=== PATIENT | female | born 1955 | race Caucasian/White ===

== ENCOUNTER → 2016-05-29 | Outpatient (CLI) | payer MEDICARE, OTHER ==
--- NOTE | 2016-05-29 10:13 | XR ---
EXAMINATION TYPE: XR KUB DATE OF EXAM: 05/29/2016 10:09 AM COMPARISON: 09/14/2012, 10/19/2012 HISTORY: Renal stone follow-up TECHNIQUE: One view abdominal series FINDINGS: The osseous structures are intact. Arthropathy of the hips noted. The bowel gas pattern is nonspecif ic. Right kidney: 1. 8 mm right renal pelvic calcification. 2. 14 mm lower pole calcification. Left kidney: 1. 5 mm lower pole renal calculus 2. 7 mm lower pole left renal calculus Pelvis: Nonspecific calcifications in the pelvis are most likely vascular. Postsurgical change and mann rgical clips noted. IMPRESSION: 1. One of the two right renal calculi now appear to have migrated to the renal pelvis. #2 left renal calculi are not as well-seen on the previous exam.
== END | disposition home or self-care (01) ==
LOC: RADXRMAIN 09:50
PROVIDERS: ATTEND Urology
DX: N20.0 Calculus of kidney (principal)
CPT/HCPCS: 74000

== ENCOUNTER → 2016-06-06 | Outpatient (CLI) | payer MEDICARE, OTHER ==
[2016-06-06 13:49] LABS: EKG EKG PERFORMED
[2016-06-06 14:28] LABS: Anion Gap 13 mmol/L; Blood Urea Nitrogen 17 mg/dL (7-17); Calcium 9.7 mg/dL (8.4-10.2); Carbon Dioxide 25 mmol/L (22-30); Chloride 101 mmol/L (98-107); Glucose 134 mg/dL (74-99); Non-African American GFR(MDRD) >60 (>60 ml/min/1.73 sqM); Potassium 4.4 mmol/L (3.5-5.1); Sodium 139 mmol/L (137-145)
[2016-06-06 14:40] LABS: Basophils # (A) 0.1 k/uL (0-0.2); Basophils % (A) 1 %; CH 30.3; CHCM 33.5; Eosinophils # (A) 0.2 k/uL (0-0.7); Eosinophils % (A) 3 %; HCT 44.1 % (34.0-46.0); HDW 2.28; HGB 14.5 gm/dL (11.4-16.0); Luc # (Auto) 0.32; Luc % (Auto) 4; Lymphocytes # (A) 2.2 k/uL (1.0-4.8); Lymphocytes % (A) 28 %; MCH 29.9 pg (25.0-35.0); MCV 90.8 fL (80.0-100.0); Mean Platelet Volume 7.9; Monocytes # (A) 0.7 k/uL (0-1.0); Monocytes % (A) 8 %; Neutrophils # (A) 4.4 k/uL (1.3-7.7); Neutrophils % (A) 56 %; RBC 4.86 m/uL (3.80-5.40); WBC 7.9 k/uL (3.8-10.6); WBC (Perox) 8.01
[2016-06-06 15:02] LABS: Partial Thromboplastin Time 22.1 sec (22.0-30.0)
== END | disposition home or self-care (01) ==
LOC: LABWHC1 13:40
PROVIDERS: ATTEND Urology
DX: Z01.810 Encounter for preprocedural cardiovascular examination (principal); Z01.812 Encounter for preprocedural laboratory examination; I10 Essential (primary) hypertension; N20.0 Calculus of kidney; R31.0 Gross hematuria
CPT/HCPCS: 36415; 80048; 85025; 85610; 85730; 93005

== ENCOUNTER 2016-06-09 09:52 | Day surgery (SDC) | payer MEDICARE, OTHER ==
[2016-06-06 15:23] VITALS: BMI 29.2
[~2016-06-09 09:52] MED LIST: LACTATED RINGERS 1,000 ML IV SCH
[2016-06-09 10:48] VITALS: TEMP 97.5
[2016-06-09] MEDS ORDERED: LIDOCAINE 1% 20 ML VIAL (10MG/ML) FOR IV START INTRADERMA ONE (11:05)
--- NOTE | 2016-06-09 11:30 | XR ---
Abdomen HISTORY: Right renal stone Protocol view of the abdomen submitted on 2 images and correlated to prior abdomen dated May 22 017 The right-sided and left renal calcifications are again noted. There is no bowel obstruction or pneum operitoneum. Bowel gas obscures detail. Lung bases are clear. Postop changes noted to the bowel as on prior exam, surgical clips present in the pelvis. Probable phleboliths in the pelvis. IMPRESSION: Bilateral nephrolithiasis.
[2016-06-09 11:34] LABS: Glucose,Whole Blood 144 mg/dL (75-99)
[2016-06-09] MEDS ORDERED: fentaNYL (PF) 50 MCG/ML 2 ML AMP ONE (11:43)
[2016-06-09] MEDS ORDERED: MIDAZOLAM 2 MG/2 ML VIAL ONE (11:43)
[2016-06-09] MEDS ORDERED: PROPOFOL 10 MG/ML 20 ML VIAL IV ONE (11:43)
[2016-06-09 12:49] VITALS: RESP 18
[2016-06-09 13:03] VITALS: BP 143/78; PULSE 82
--- NOTE | 2016-06-10 09:12 | OP ---
DATE OF SERVICE: 06/09/2016 SURGEON: LEONARD HORNE MD PREOPERATIVE DIAGNOSIS: Right renal calculi. POSTOPERATIVE DIAGNOSIS: Right renal calculi. OPERATION: Extracorporeal shock wave lithotripsy of right renal calculus. ANESTHESIA: Intravenous sedation. Patient is a 61-year-old female with a history of urolithiasis who underwent treatment of a right renal calculus in 2012. She continues to have 2 calculi in the right kidney and recently developed gross hematuria. The largest calculus measures 8 x 9 mm in size. Treatment options were reviewed with Dr. Chowdary and the patient has elected to proceed with repeat ESWL. DESCRIPTION OF PROCEDURE: Patient was taken the operating suite where adequate intravenous sedation was given. Patient was placed in the supine position on the fluoroscopy table. The 8 x 9 mm calculus was localized in the region of the right renal pelvis using biplanar fluoroscopy. Lithotripsy was performed using the Dornier compact delta unit. Patient received 2500 shocks at level 5. A 2 minute pause occurred after 200 shocks. There appeared to be fragmentation of the calculus. Anesthesia was reversed and the patient was returned to the recovery room, awake and in satisfactory condition. She will be seen back in one week by Dr. Chowdary at which time a KUB will be obtained. GRACE
== END 2016-06-09 13:16 | disposition home or self-care (01) ==
LOC: ORWHC2ENDO 09:52
PROVIDERS: ATTEND Urology
DX: N20.0 Calculus of kidney (principal); I10 Essential (primary) hypertension; E78.5 Hyperlipidemia, unspecified; E11.9 Type 2 diabetes mellitus without complications; K21.9 Gastro-esophageal reflux disease without esophagitis; E03.9 Hypothyroidism, unspecified; F41.9 Anxiety disorder, unspecified; Z88.1 Allergy status to other antibiotic agents; Z91.048 Other nonmedicinal substance allergy status; Z88.8 Allergy status to other drugs, medicaments and biological substances; Z79.84 Long term (current) use of oral hypoglycemic drugs; Z79.899 Other long term (current) drug therapy; Z87.891 Personal history of nicotine dependence; Z83.3 Family history of diabetes mellitus; Z80.51 Family history of malignant neoplasm of kidney
CPT/HCPCS: 50590; 74000; J2250; J3010; J2704; 99153

== ENCOUNTER → 2016-06-16 | Outpatient (CLI) | payer MEDICARE, OTHER ==
--- NOTE | 2016-06-16 13:11 | XR ---
Abdomen HISTORY: Renal calculus, post lithotripsy Frontal view of the abdomen submitted and correlated to prior abdomen May The superior calcification involving the right kidney seen on prior exam has resolved. The lower pole calcification on the right is stable. Overall calcification on the left is also stable. Surgical cli ps present in the pelvis, bowel suture is present, there vascular calcifications present. IMPRESSION: Interval lithotripsy on the right.
== END ==
LOC: RADXRWHC 12:00
PROVIDERS: ATTEND Urology
DX: N20.0 Calculus of kidney (principal)
CPT/HCPCS: 74000

== ENCOUNTER 2016-10-21 10:20 | Emergency (ER) | payer MEDICARE ==
[2016-10-21 10:28] VITALS: BP 116/55; PULSE 93; RESP 16
[2016-10-21] MEDS ORDERED: SODIUM CHLORIDE 0.9% 1,000 ML IV STA ×2 (10:39)
[2016-10-21] MEDS ORDERED: ONDANSETRON 4 MG/2 ML VIAL IVP STA (10:39)
--- NOTE | 2016-10-21 10:49 | ED ---
General Adult HPI - General Chief complaint: Nausea/Vomiting/Diarrhea Stated complaint: Fever Time Seen by Provider: 10/21/16 10:32 Source: patient, RN notes reviewed, old records reviewed Mode of arrival: ambulatory Limitations: no limitations - History of Present Illness Initial comments: This is a 61-year-old female here for evaluation regarding nausea, diarrhea. Diarrhea 2 days. Fever. No specific abdominal pain. History of diabetes history of colonoscopy which is normal, no difficulties with urination history of kidney stones. No back pain. Patient currently had a continuous diarrhea although it has slowed down. She is able to tolerate oral fluids and intake, no dietary changes, no founders of similar symptoms, no recent travel history - Related Data Home Medications Medication Instructions Recorded Confirmed Carvedilol 25 mg PO BID 06/11/15 10/21/16 Furosemide [Lasix] 20 mg PO DAILY PRN 06/11/15 10/21/16 Levothyroxine Sodium [Synthroid] 100 mcg PO QAM 06/11/15 10/21/16 Cholecalciferol (Vitamin D3) 10,000 unit PO DAILY 10/21/16 10/21/16 [Vitamin D3] Ibuprofen [Motrin] 200 - 800 mg PO Q6HR PRN 10/21/16 10/21/16 glipiZIDE [Glucotrol] 2.5 mg PO AC-SUPPER 10/21/16 10/21/16 glipiZIDE [Glucotrol] 5 mg PO QAM 10/21/16 10/21/16 metFORMIN HCL ER [Glucophage Xr] 1,000 mg PO HS 10/21/16 10/21/16 metFORMIN HCL ER [Glucophage Xr] 500 mg PO QAM 10/21/16 10/21/16 Allergies Allergy/AdvReac Type Severity Reaction Status Date / Time adhesive tape Allergy Itching,BLI Verified 10/21/16 11:06 STERS bacitracin Allergy Rash/Hives, Verified 10/21/16 11:06 [From Neosporin BLISTERS ([id number])] lisinopril Allergy Unknown Verified 10/21/16 11:06 neomycin Allergy Rash/Hives Verified 10/21/16 11:06 polymyxin B Allergy Rash/Hives, Verified 10/21/16 11:06 [From Neosporin BLISTERS ([id number])] Review of Systems ROS Statement: Those systems with pertinent positive or pertinent negative responses have been documented in the HPI. ROS Other: All systems not noted in ROS Statement are negative. Past Medical History Past Medical History: Cancer, Thyroid Disorder Additional Past Medical History / Comment(s): ALLERGIES: SNEEZING, EAR INFECTIONS.. OVARIAN CANCER. HYPOTHYROID. BILATERAL RENAL CALCULI. History of Any Multi-Drug Resistant Organisms: None Reported Past Surgical History: Section, Hysterectomy Additional Past Surgical History / Comment(s): PORT A CATH. WISDOM TEETH. LITHOTRIPSY. Past Anesthesia/Blood Transfusion Reactions: No Reported Reaction Past Psychological History: Anxiety Smoking Status: Former smoker Past Alcohol Use History: None Reported Past Drug Use History: None Reported General Exam Limitations: no limitations General appearance: alert, in no apparent distress Head exam: Present: atraumatic, normocephalic, normal inspection Eye exam: Present: normal appearance, PERRL, EOMI. Absent: scleral icterus, conjunctival injection, periorbital swelling ENT exam: Present: normal exam, mucous membranes moist Neck exam: Present: normal inspection. Absent: tenderness, meningismus, lymphadenopathy Respiratory exam: Present: normal lung sounds bilaterally. Absent: respiratory distress, wheezes, rales, rhonchi, stridor Cardiovascular Exam: Present: regular rate, normal rhythm, normal heart sounds. Absent: systolic murmur, diastolic murmur, rubs, gallop, clicks GI/Abdominal exam: Present: soft, normal bowel sounds. Absent: distended, tenderness, guarding, rebound, rigid Extremities exam: Present: normal inspection, full ROM, normal capillary refill. Absent: tenderness, pedal edema, joint swelling, calf tenderness Back exam: Present: normal inspection Neurological exam: Present: alert, oriented X3, CN II-XII intact Psychiatric exam: Present: normal affect, normal mood Skin exam: Present: warm, dry, intact, normal color. Absent: rash Course Vital Signs 10/21/16 10/21/16 10:25 11:06 Temperature 97.8 F 97.6 F Pulse Rate 93 Respiratory 16 Rate Blood Pressure 116/55 O2 Sat by Pulse 96 Oximetry - Reevaluation(s) Reevaluation #1: 10/21/16 11:44 Patient refusing all testing and lab work Medical Decision Making - Medical Decision Making 61 female here for evaluation of diarrhea, patient has had 3 days of diarrhea although symptoms are improving his multiple various decreasing. Patient also having increased amount of urination, concern for kidney stone. No blood in urine, patient informed that we do not diagnosed kidney stones urine she is aware, she wants to further testing and will be discharged home - Lab Data Lab Results 10/21/16 Range/Units 11:05 Urine Color Colorless Urine Appearance Clear (Clear) Urine pH 5.0 (5.0-8.0) Ur Specific Crosby 1.001 (1.001-1.035) Urine Protein Negative (Negative) Urine Glucose (UA) Negative (Negative) Urine Ketones Negative (Negative) Urine Blood Negative (Negative) Urine Nitrite Negative (Negative) Urine Bilirubin Negative (Negative) Urine Urobilinogen <2.0 (<2.0) mg/dL Ur Leukocyte Esterase Negative (Negative) Disposition Clinical Impression: Acute diarrhea Disposition: HOME SELF-CARE Condition: Good Instructions: Acute Diarrhea (ED) Referrals: Venkata Xavier MD [Primary Care Provider] - 1-2 days
[2016-10-21 11:06] VITALS: TEMP 97.6
[2016-10-21 11:12] LABS: Appearance,Urine Clear (Clear); Bilirubin,Urine Negative (Negative); Glucose,Urine (UA) Negative (Negative); Ketones,Urine Negative (Negative); Leukocyte Esterase,Urine Negative (Negative); Nitrite,Urine Negative (Negative); Protein,Urine Negative (Negative); Specific Gravity,Urine 1.001 (1.001-1.035); UA Billing (MACRO vs. MICRO) CHEM; Urobilinogen,Urine <2.0 mg/dL (<2.0)
== END 2016-10-21 12:05 | disposition home or self-care (01) ==
LOC: EC 10:20
DX: R19.7 Diarrhea, unspecified (principal); R11.2 Nausea with vomiting, unspecified; R50.9 Fever, unspecified; R35.8 Other polyuria; E03.9 Hypothyroidism, unspecified; E11.9 Type 2 diabetes mellitus without complications; Z53.20 Procedure and treatment not carried out because of patient's decision for unspecified reasons; Z87.891 Personal history of nicotine dependence; Z79.84 Long term (current) use of oral hypoglycemic drugs; Z79.899 Other long term (current) drug therapy; Z88.1 Allergy status to other antibiotic agents; Z88.8 Allergy status to other drugs, medicaments and biological substances; Z91.048 Other nonmedicinal substance allergy status; Z85.43 Personal history of malignant neoplasm of ovary; Z87.442 Personal history of urinary calculi; Z90.710 Acquired absence of both cervix and uterus
CPT/HCPCS: 81003; 87086; 99284

== ENCOUNTER → 2018-08-11 | Outpatient (CLI) | payer MEDICARE, OTHER ==
--- NOTE | 2018-08-11 11:03 | XR ---
Abdomen HISTORY: Nephrolithiasis, calculus of kidney Frontal view of the abdomen is submitted and correlated to prior abdomen dated 06/16/2016 There is an oval calcification superimposed over the left kidney region measuring 2 cm in greatest di mension. Calcification superimposed over the lower pole the right kidney is similar to prior exam and measures approximately 13 mm in greatest dimension. Small satellite calcification measures 2 mm just inferior to this calcification. There are postop changes within the pelvis as on prior exam as well as probable vascular calcifications. No evident bowel obstruction or pneumoperitoneum. Retained fecal debris present throughout the distribution of the colon. IMPRESSION: Bilateral nephrolithiasis.
== END | disposition home or self-care (01) ==
LOC: RADXRMAIN 10:04
PROVIDERS: ATTEND Urology
DX: N20.0 Calculus of kidney (principal)
CPT/HCPCS: 74018

== ENCOUNTER 2018-08-24 04:22 | Inpatient (IN) | payer MEDICARE, OTHER ==
[2018-08-24] MEDS ORDERED: ACETAMINOPHEN TAB 325 MG TAB PO PRN (05:51)
[2018-08-24] MEDS ORDERED: NALOXONE 0.4 MG/ML 1 ML VIAL IV PRN (05:51)
[2018-08-24] MEDS ORDERED: SODIUM CHLORIDE 0.9% 500 ML 500 ML IV STA (05:54)
[2018-08-24] MEDS ORDERED: MORPHINE SULFATE 4 MG/ML SYRINGE IV STA (05:55)
--- NOTE | 2018-08-24 06:02 | ED ---
Nausea/Vomiting/Diarrhea HPI - General Chief complaint: Nausea/Vomiting/Diarrhea Stated complaint: kidney stone Time Seen by Provider: 08/24/18 04:48 Source: patient, EMS Mode of arrival: EMS Limitations: no limitations - History of Present Illness Initial comments: This patient is a 63-year-old woman who arrives here as a transfer from [facility]. She had gone to the hospital there complaining of having left flank pain and vomiting. The patient also had undergone lithotripsy the prior day, with the urology group. She had gone home and then noted that she was having increasing left flank pain and also had a number of episodes of vomiting and was not able to keep down fluids or Tylenol. The patient was seen at the other hospital, she was found to have hyponatremia with a sodium level of 123. She was transferred here for further management. Currently, the patient states that the vomiting seems to have resolved. She has some mild left flank pain. She did decline analgesic at initial history and physical. No fever or chills. MD complaint: vomiting Onset/Timin -: days(s) Description of Vomiting: food contents Associated Abdominal Pain: Yes Location: flank Radiation: none Severity: moderate Quality: aching Consistency: constant Improves with: none Worsens with: none Associated Symptoms: nausea/vomiting - Related Data Home Medications Medication Instructions Recorded Confirmed Carvedilol 25 mg PO BID 06/11/15 08/24/18 Furosemide [Lasix] 20 mg PO DAILY PRN 06/11/15 08/24/18 Levothyroxine Sodium [Synthroid] 100 mcg PO QAM 06/11/15 08/24/18 Cholecalciferol (Vitamin D3) 10,000 unit PO DAILY 10/21/16 08/24/18 [Vitamin D3] Ibuprofen [Motrin] 200 - 800 mg PO Q6HR PRN 10/21/16 08/24/18 glipiZIDE [Glucotrol] 2.5 mg PO AC-SUPPER 10/21/16 08/24/18 glipiZIDE [Glucotrol] 5 mg PO QAM 10/21/16 08/24/18 metFORMIN HCL ER [Glucophage Xr] 1,000 mg PO HS 10/21/16 08/24/18 metFORMIN HCL ER [Glucophage Xr] 500 mg PO QAM 10/21/16 08/24/18 Tamsulosin HCl [Flomax] 0.4 mg PO DAILY 08/24/18 08/24/18 Allergies Allergy/AdvReac Type Severity Reaction Status Date / Time adhesive tape Allergy Itching,BLI Verified 08/24/18 04:38 STERS bacitracin Allergy Rash/Hives, Verified 08/24/18 04:38 [From Neosporin BLISTERS ([id number])] lisinopril Allergy Unknown Verified 08/24/18 04:38 neomycin Allergy Rash/Hives Verified 08/24/18 04:38 polymyxin B Allergy Rash/Hives, Verified 08/24/18 04:38 [From Neosporin BLISTERS ([id number])] Review of Systems ROS Statement: Those systems with pertinent positive or pertinent negative responses have been documented in the HPI. ROS Other: All systems not noted in ROS Statement are negative. Constitutional: Denies: fever, chills Respiratory: Denies: cough, dyspnea Cardiovascular: Denies: chest pain, palpitations, edema, syncope Gastrointestinal: Reports: abdominal pain (Left flank), nausea, vomiting. Denies: diarrhea, constipation, melena, hematochezia Genitourinary: Reports: hematuria. Denies: dysuria, frequency Musculoskeletal: Denies: back pain Skin: Denies: rash Neurological: Denies: headache, weakness, numbness Past Medical History Past Medical History: Cancer, Thyroid Disorder Additional Past Medical History / Comment(s): ALLERGIES: SNEEZING, EAR INFECTIONS.. OVARIAN CANCER. HYPOTHYROID. BILATERAL RENAL CALCULI. History of Any Multi-Drug Resistant Organisms: None Reported Past Surgical History: Section, Hysterectomy Additional Past Surgical History / Comment(s): PORT A CATH. WISDOM TEETH. LITHOTRIPSY. Past Anesthesia/Blood Transfusion Reactions: No Reported Reaction Past Psychological History: Anxiety Smoking Status: Former smoker Past Alcohol Use History: None Reported Past Drug Use History: None Reported General Exam Limitations: no limitations General appearance: alert, in no apparent distress Head exam: Present: atraumatic, normocephalic Eye exam: Present: normal appearance. Absent: scleral icterus, conjunctival injection ENT exam: Present: mucous membranes dry Neck exam: Present: normal inspection Respiratory exam: Present: normal lung sounds bilaterally. Absent: respiratory distress, wheezes, rales, rhonchi, stridor Cardiovascular Exam: Present: regular rate, normal rhythm, normal heart sounds. Absent: systolic murmur, diastolic murmur, rubs, gallop GI/Abdominal exam: Present: soft. Absent: distended, tenderness, guarding, rebound, mass Extremities exam: Present: normal inspection, normal capillary refill. Absent: pedal edema, calf tenderness Back exam: Present: normal inspection. Absent: CVA tenderness (R), CVA tenderness (L) Neurological exam: Present: alert Skin exam: Present: warm, dry, intact, normal color. Absent: rash Course Vital Signs 08/24/18 04:25 Temperature 97.6 F Pulse Rate 80 Respiratory 18 Rate Blood Pressure 148/68 O2 Sat by Pulse 94 L Oximetry Medical Decision Making - Medical Decision Making Review of the patient's transfer paperwork reveals that the patient also had lactic acidosis at 3.5 she was given 2 L IV fluid and transferred here. Disposition Clinical Impression: Hyponatremia, Hypomagnesemia, Lactic acidosis, Flank pain Disposition: ADMITTED IP TO THIS HOSP Condition: Fair Is patient prescribed a controlled substance at d/c from ED?: No Referrals: Kayla Ramirez MD [Primary Care Provider] - 1-2 days
[2018-08-24] MEDS ORDERED: FUROSEMIDE 20 MG TAB PO PRN (06:04)
[2018-08-24 07:04] LABS: Appearance,Urine Clear (Clear); Bilirubin,Urine Negative (Negative); Blood,Urine Moderate (Negative); Color,Urine Light Yellow; Glucose,Urine (UA) 2+ (Negative); Ketones,Urine Negative (Negative); Leukocyte Esterase,Urine Negative (Negative); Mucus,Urine Rare /hpf; Nitrite,Urine Negative (Negative); PH, Urine 5.5 (5.0-8.0); Protein,Urine Negative (Negative); RBC,Urine 42 /hpf (0-5); Squamous Epithelial Cell,Urine <1 /hpf (0-4); Urobilinogen,Urine <2.0 mg/dL (<2.0)
[2018-08-24 07:07] LABS: Anion Gap 9 mmol/L; Blood Urea Nitrogen 15 mg/dL (7-17); Calcium 8.3 mg/dL (8.4-10.2); Carbon Dioxide 21 mmol/L (22-30); Chloride 102 mmol/L (98-107); Glucose 181 mg/dL (74-99); Potassium 4.7 mmol/L (3.5-5.1); Sodium 132 mmol/L (137-145)
[2018-08-24 07:07] LABS: Creatinine,Urine Random 21.8 mg/dL
[2018-08-24] MEDS: SODIUM CHLORIDE 0.9% 1,000 ML IV SCH ×2 (07:21→17:46)
[2018-08-24] MEDS ORDERED: glipiZIDE 5 MG TAB PO SCH ×2 (09:00→17:30)
[2018-08-24] MEDS: CARVEDILOL 12.5 MG TAB PO SCH ×2 (09:16→17:11)
[2018-08-24] MEDS: TAMSULOSIN 0.4 MG CAP.ER.24H PO SCH (09:19)
[2018-08-24] MEDS: ONDANSETRON 4 MG/2 ML VIAL IVP PRN ×2 (10:04→18:00)
[2018-08-24] MEDS: MORPHINE SULFATE 4 MG/ML SYRINGE IVP PRN ×3 (10:06→21:41)
[2018-08-24] MEDS: LEVOTHYROXINE 100 MCG TAB PO SCH (14:40)
[2018-08-24] MEDS: metFORMIN 500 MG TAB PO SCH ×3 (15:03→21:35)
--- NOTE | 2018-08-24 16:23 | P.GSCN ---
History of Present Illness Consult date: 08/24/18 History of present illness: The patient is a 63-year-old female who underwent extracorporeal shockwave lithotripsy by yesterday for a 14 mm left renal pelvic stone. She's been seen and treated by in the recent past and set up for the shockwave lithotripsy. She did well and passed some fragments. Later on in the evening and throughout the night she developed severe nausea and vomiting. She ended up in the [facility] emergency room and was transferred here because of persistent colic nausea vomiting and hyponatremia due to the vomiting. She has had no fever. She is still having discomfort. She has not passed any fragments. I do not have any x-rays showing the status of her kidney stone at this point in time. Review of Systems - Constitutional Reports anorexia - Gastrointestinal Reports abdominal pain - Genitourinary Genitourinary: Reports as per HPI Past Medical History Past Medical History: Cancer, Diabetes Mellitus, GERD/Reflux, Hyperlipidemia, Osteoarthritis (OA), Renal Disease, Thyroid Disorder Additional Past Medical History / Comment(s): Nephrolithiasis, ovarian cancer in 2010 with mets tx with surgery/chemo, numbness/tingling/itching skin all over since chemo, NIDDM type II, neuropathy feet, LBBB, tinnitis bilaterally, sinus problems, ear infections History of Any Multi-Drug Resistant Organisms: None Reported Past Surgical History: Section, Hysterectomy Additional Past Surgical History / Comment(s): Lithotripsies-last one 08/23/18, total hysterectomy with bowel resection and appendectomy d/t ovarian cancer, port-now out, wisdom teeth extractions. Past Anesthesia/Blood Transfusion Reactions: No Reported Reaction, Motion Sickness Smoking Status: Former smoker - Past Family History Father Family Medical History: Cancer Additional Family Medical History / Comment(s): Father of lung cancer. Mother Family Medical History: Diabetes Mellitus Additional Family Medical History / Comment(s): Kidney stones. Medications and Allergies Home Medications Medication Instructions Recorded Confirmed Type Carvedilol 25 mg PO BID 06/11/15 08/24/18 History Furosemide [Lasix] 20 mg PO BID 06/11/15 08/24/18 History Levothyroxine Sodium [Synthroid] 100 mcg PO QAM 06/11/15 08/24/18 History Ibuprofen [Motrin] 200 - 800 mg PO Q6HR PRN 10/21/16 08/24/18 History glipiZIDE [Glucotrol] 2.5 mg PO AC-SUPPER 10/21/16 08/24/18 History glipiZIDE [Glucotrol] 5 mg PO QAM 10/21/16 08/24/18 History metFORMIN HCL ER [Glucophage Xr] 1,000 mg PO HS 10/21/16 08/24/18 History metFORMIN HCL ER [Glucophage Xr] 500 mg PO QAM 10/21/16 08/24/18 History Cetirizine HCl [Zyrtec] 10 mg PO DAILY 08/24/18 08/24/18 History Cholecalciferol [Vitamin D3 (25 1,000 unit PO BID 08/24/18 08/24/18 History Mcg = 1000 Iu)] Omeprazole [PriLOSEC] 20 mg PO DAILY 08/24/18 08/24/18 History Tamsulosin HCl [Flomax] 0.4 mg PO DAILY 08/24/18 08/24/18 History Allergies Allergy/AdvReac Type Severity Reaction Status Date / Time adhesive tape Allergy Itching,BLI Verified 08/24/18 07:56 STERS bacitracin Allergy Rash/Hives, Verified 08/24/18 07:56 [From Neosporin BLISTERS ([id number])] lisinopril Allergy Unknown Verified 08/24/18 07:56 neomycin Allergy Rash/Hives Verified 08/24/18 07:56 polymyxin B Allergy Rash/Hives, Verified 08/24/18 07:56 [From Neosporin BLISTERS ([id number])] Surgical - Exam Vital Signs Temp Pulse Resp BP Pulse Ox 97.6 F 80 18 148/68 94 L 08/24/18 04:25 08/24/18 04:25 08/24/18 04:25 08/24/18 04:25 08/24/18 04:25 - General well developed, well nourished, moderate distress - Eyes PERRL - ENT no hearing loss - Neck no masses - Respiratory normal expansion, normal respiratory effort - Cardiovascular Rhythm: regular - Abdomen Abdomen: soft, tender - Neurologic normal coordination, normal sensation - Musculoskeletal normal posture - Psychiatric oriented to time, oriented to person, oriented to place, speech is normal, memory intact Results - Labs 08/24/18 06:36 Abnormal Lab Results - Last 24 Hours (Table) 08/24/18 08/24/18 08/24/18 Range/Units 06:00 06:36 06:36 Sodium 132 L (137-145) mmol/L Carbon Dioxide 21 L (22-30) mmol/L Glucose 181 H (74-99) mg/dL Osmolality 279 L (280-301) mosm/kg Plasma Lactic Acid Ricky 2.8 H* (0.7-2.0) mmol/L Calcium 8.3 L (8.4-10.2) mg/dL Urine Glucose (UA) 2+ H (Negative) Urine Blood Moderate H (Negative) Urine RBC 42 H (0-5) /hpf Urine Mucus Rare H (None) /hpf Diabetes panel 08/24/18 Range/Units 06:36 Sodium 132 L (137-145) mmol/L Potassium 4.7 (3.5-5.1) mmol/L Chloride 102 (98-107) mmol/L Carbon Dioxide 21 L (22-30) mmol/L BUN 15 (7-17) mg/dL Creatinine 0.70 (0.52-1.04) mg/dL Glucose 181 H (74-99) mg/dL Calcium 8.3 L (8.4-10.2) mg/dL Calcium panel 08/24/18 Range/Units 06:36 Calcium 8.3 L (8.4-10.2) mg/dL Pituitary panel 08/24/18 Range/Units 06:36 Sodium 132 L (137-145) mmol/L Potassium 4.7 (3.5-5.1) mmol/L Chloride 102 (98-107) mmol/L Carbon Dioxide 21 L (22-30) mmol/L BUN 15 (7-17) mg/dL Creatinine 0.70 (0.52-1.04) mg/dL Glucose 181 H (74-99) mg/dL Calcium 8.3 L (8.4-10.2) mg/dL Adrenal panel 08/24/18 Range/Units 06:36 Sodium 132 L (137-145) mmol/L Potassium 4.7 (3.5-5.1) mmol/L Chloride 102 (98-107) mmol/L Carbon Dioxide 21 L (22-30) mmol/L BUN 15 (7-17) mg/dL Creatinine 0.70 (0.52-1.04) mg/dL Glucose 181 H (74-99) mg/dL Calcium 8.3 L (8.4-10.2) mg/dL Assessment and Plan Assessment: Impression: Left ureteral colic post shockwave lithotripsy most likely due to obstructing ureteral stone fragments. Nausea and vomiting secondary to colic. Hyponatremia secondary to the nausea and vomiting. Plan: I will obtain a KUB. Assuming the fragments persists she will need a left ureteroscopic stone manipulation through without a stent tomorrow to control the obstruction and pain. I will notify of the patient's admission
--- NOTE | 2018-08-24 16:45 | XR ---
EXAMINATION TYPE: XR KUB DATE OF EXAM: 08/24/2018 COMPARISON: 08/11/2018 HISTORY: Pain TECHNIQUE: Single view FINDINGS: There is 8 mm calcification over the lower pole right kidney. There is no sign of intestina l obstruction or pneumoperitoneum. Fecal pattern is normal. There is no evidence of a mass. There is linear calcification in the left lower quadrant is probably multiple calculi in the distal l eft ureter. There is clearing of the 1.8 cm rounded calcification over the left kidney compared to re cent exam. IMPRESSION: There is calcification in the distal left ureter apparently from lithotripsy. This is Corky instrasse. Stable right renal calculus.
[2018-08-24 17:39] LABS: Glucose,Whole Blood 143 mg/dL (75-99)
[2018-08-24] MEDS: INSULIN ASPART (NovoLOG) 100 UNIT/ML VIAL SQ SCH ×2 (17:43→20:25)
[2018-08-24] MEDS ORDERED: LACTATED RINGERS 1,000 ML IV SCH (20:30)
--- NOTE | 2018-08-24 21:07 | HP ---
HISTORY AND PHYSICAL DATE OF ADMISSION AND SERVICE: 08/24/2018 PRESENTING COMPLAINT: Abdominal pain. HISTORY OF PRESENTING COMPLAINT: This is a pleasant 63-year-old patient of Dr. Ramirez. Chronic stable medical conditions include diabetes with diabetic peripheral neuropathy, GERD, hypertension, hyperlipidemia, osteoarthritis, chronic tinnitus. Yesterday the patient was at the [facility], where she underwent lithotripsy. Subsequently she went home and started having increasing left-sided abdominal pain with nausea and vomiting that became rather severe, and she presented to [facility], found to have a sodium of 123, and she was sent down here. Patient denies any fever or chills but has increasing amount of pain in the left flank side. The patient was seen by Dr. Coker earlier today, who is planning to do a possible ureteroscopy tomorrow for possibly some small fragments in the ureter. REVIEW OF SYSTEMS: CONSTITUTIONAL: Tired. HEENT: None. RESPIRATORY: None. CARDIOVASCULAR: None. GASTROINTESTINAL: As above. GENITOURINARY: As above. MUSCULOSKELETAL: Arthritic pain in joints. DERMATOLOGICAL: None. HEMATOLOGICAL: None. LYMPHATICS: None. PSYCHIATRY: None. NEUROLOGICAL: None. PAST MEDICAL HISTORY: 1. Diabetes mellitus, type 2. 2. GERD. 3. Hyperlipidemia. 4. Osteoarthritis. 5. Hypothyroid. 6. Kidney stones. 7. Ovarian cancer in 2010 with metastases, treated with surgery and chemo. 8. Numbness, tingling. 9. Peripheral neuropathy. 10.Left bundle branch block. 11.Tinnitus. 12.Ear infection. PAST SURGICAL HISTORY: 1. . 2. Hysterectomy. 3. Lithotripsy done yesterday. 4. Total hysterectomy, bowel resection and appendectomy due to ovarian cancer. PSYCH HISTORY: Anxiety. SOCIAL HISTORY: Lives with daughter and son-in-law, living in her house. The patient smoked for about 18 years, stopped in 1988. Alcohol rarely. FAMILY HISTORY: Father had lung cancer. HOME MEDICATIONS: 1. Prilosec 20 mg a day. 2. Vitamin D3 1000 units b.i.d. 3. Lasix 20 mg b.i.d. 4. Zyrtec 10 mg p.o. daily. 5. Flomax 0.4 mg p.o. daily. 6. Glucophage XR 1000 mg at bedtime, 500 mg in the morning. 7. Glucotrol 5 mg in the morning, 2.5 with supper. 8. Synthroid 100 mcg a day. 9. Motrin 200 to 800 q.6 p.r.n. 10.Coreg 25 mg b.i.d. ALLERGIES: 1. ADHESIVE TAPE. 2. BACITRACIN. 3. LISINOPRIL. 4. NEOMYCIN. 5. POLYMYXIN B. PHYSICAL EXAMINATION: VITAL SIGNS ON PRESENTATION: Temperature 97.6, pulse 80, respiration 18, blood pressure 148/68, pulse ox 94% on 3 L. GENERAL APPEARANCE: Well built; BMI 31.6. Lying in bed, uncomfortable. EYES: Pupils equal. Conjunctivae normal. HEENT: External appearance of nose and ears normal. Oral cavity a bit dry. NECK: JVD not raised. Mass not palpable. RESPIRATORY: Effort normal. LUNGS: Fair air entry. CARDIOVASCULAR: First and second sounds normal. No edema. ABDOMEN: Left-sided tenderness. No guarding or rigidity. Liver and spleen not palpable. LYMPHATIC: No lymph node palpable in neck or axillae. PSYCHIATRY: Alert and oriented x3. Mood and affect normal. NEUROLOGICAL: Pupils equal. Cranial nerves grossly intact. Power and sensation grossly intact. ASSESSMENT: 1. Increasing acute left flank pain in a patient who had lithotripsy done yesterday. Patient probably has some small grit or stones in the left ureter which may need to be extracted. Patient still remains in significant pain. 2. Hyponatremia, probably hypo-osmolar. It was 123 at [facility], now up to 132 this morning. 3. Diabetes mellitus, type 2, on oral hypoglycemic. 4. Diabetic peripheral neuropathy. 5. Gastroesophageal reflux disease. 6. Hyperlipidemia. 7. Primary osteoarthritis. 8. Essential hypertension. 9. Lactic acidosis, likely type 2. PLAN: Patient's IV fluids have been increased to 150 mL/hour. Hold off oral hypoglycemic. Continue with Accu-Cheks with sliding scale. Other home medications are resumed. Care was discussed with the patient. Dr. Coker saw the patient from urology group, planning to take the patient to the OR tomorrow for ureteroscopy. Care was discussed with the patient. Questions were answered. MMODL / IJN: [id number] /
[2018-08-24] MEDS: ENOXAPARIN 40 MG/0.4 ML SYRINGE SQ SCH (21:34)
[2018-08-25] MEDS: MORPHINE SULFATE 4 MG/ML SYRINGE IVP PRN ×2 (02:01→05:48)
[2018-08-25] MEDS: LEVOTHYROXINE 100 MCG TAB PO SCH (05:02)
[2018-08-25 07:17] LABS: Glucose,Whole Blood 148 mg/dL (75-99)
[2018-08-25 08:10] LABS: Basophils # (A) 0.1 k/uL (0-0.2); Basophils % (A) 1 %; Eosinophils # (A) 0.2 k/uL (0-0.7); Eosinophils % (A) 1 %; HCT 38.6 % (34.0-46.0); HGB 12.8 gm/dL (11.4-16.0); Lymphocytes # (A) 1.4 k/uL (1.0-4.8); Lymphocytes % (A) 10 %; MCH 29.8 pg (25.0-35.0); MCV 90.3 fL (80.0-100.0); Mean Platelet Volume 7.3; Monocytes % (A) 7 %; Neutrophils # (A) 11.1 k/uL (1.3-7.7); Neutrophils % (A) 79 %; Platelet Count 268 k/uL (150-450); RBC 4.28 m/uL (3.80-5.40); RDW 13.4 % (11.5-15.5); WBC 14.1 k/uL (3.8-10.6)
[2018-08-25] MEDS: INSULIN ASPART (NovoLOG) 100 UNIT/ML VIAL SQ SCH ×2 (08:12→12:34)
[2018-08-25] MEDS: CARVEDILOL 12.5 MG TAB PO SCH ×2 (08:18→09:08)
[2018-08-25] MEDS: metFORMIN 500 MG TAB PO SCH ×2 (08:19)
[2018-08-25] MEDS: TAMSULOSIN 0.4 MG CAP.ER.24H PO SCH (08:19)
[2018-08-25 08:22] LABS: Calcium 8.6 mg/dL (8.4-10.2); Potassium 4.4 mmol/L (3.5-5.1)
[2018-08-25] MEDS: ENOXAPARIN 40 MG/0.4 ML SYRINGE SQ SCH (09:00)
[2018-08-25] MEDS ORDERED: LACTATED RINGERS 1,000 ML IV ONE ×2 (09:45)
[2018-08-25] MEDS: ONDANSETRON 4 MG/2 ML VIAL IVP PRN (09:53)
[2018-08-25] MEDS ORDERED: DEXAMETHASONE SOD PHOSPHATE 10 MG/ML 1 ML VIAL IV ONE (09:54)
[2018-08-25] MEDS ORDERED: fentaNYL (PF) 50 MCG/ML 2 ML AMP IVP ONE (09:56)
[2018-08-25] MEDS ORDERED: ePHEDrine SULFATE/0.9% NACL/PF 50 MG/5 ML SYRINGE IV ONE (10:00)
[2018-08-25] MEDS ORDERED: ceFAZolin 1,000 MG VIAL ONE (10:00)
[2018-08-25] MEDS ORDERED: SUCCINYLCHOLINE CHLORIDE 100 MG/5 ML SYR IV ONE (10:00)
[2018-08-25] MEDS ORDERED: LIDOCAINE 1% INJ 10MG/ML (20 ML MDV) ONE (10:00)
[2018-08-25] MEDS ORDERED: MIDAZOLAM 2 MG/2 ML VIAL ONE (10:00)
[2018-08-25] MEDS ORDERED: PHENYLEPHRINE-0.9% NACL SYG 1 MG/10 ML SYRINGE ONE (10:00)
[2018-08-25] MEDS ORDERED: PROPOFOL 10 MG/ML 20 ML VIAL IV ONE (10:00)
[2018-08-25] MEDS ORDERED: fentaNYL (PF) 50 MCG/ML 2 ML AMP ONE (10:00)
[2018-08-25 10:03] LABS: Glucose,Whole Blood 146 mg/dL (75-99)
[2018-08-25] MEDS ORDERED: SODIUM CHLORIDE 0.9% 50 ML with ceFAZolin 2,000 MG IV ONE ×2 (10:15)
--- NOTE | 2018-08-25 11:00 | P.OP ---
Date of Procedure: 08/25/18 Preoperative Diagnosis: Left ureteral calculi with obstruction and colic Postoperative Diagnosis: Same Procedure(s) Performed: Cystoscopy, left ureteroscopy with stone basketing, placement of 6 x 24 double-J catheter Anesthesia: SHWETA Surgeon: Clay Coker Estimated Blood Loss (ml): 0 Pathology: other (Stone) Condition: stable Disposition: PACU Indications for Procedure: The patient is 63. She had a 14-15 mm stone treated with shockwave lithotripsy on Thursday. Stone fragments obstructed and she developed a significant Steinstrasse in the left ureter. She continues to have colic. KUB identifies this. She comes for stone manipulation Description of Procedure: The patient was brought in the operating suite she is given general anesthesia. She's placed lithotomy position with sterile prep and drape. Fluoroscopy identifies the left ureteral Steinstrasse in the distal ureter cystoscopy with a 22-Faroese sheath and Foroblique lenses performed. The mucosa was unremarkable the right ureteral orifice is normal. They're stone emanating from the left ureteral orifice. It is grasped with a cup biopsy forcep but there is still stone lodging the distal ureter. I passed the 7-Faroese mini scope and him able to dislodge the distal fragments. There then pass is a fair amount of sand. I passed into the more proximal portion of the intramural ureter. There are fragments that I basket. I then pass proximal this and washout the rest of the sand. Then of the procedure there is no significant stone but there is still a significant amount of edema in the intramural tunnel. I thus passed an 035 wire through the ureteroscope up into the renal pelvis. I move the ureteroscope and over the wire pass a 6 x 24 double-J cath that coils in the renal pelvis and the bladder the bladder is cleared of any stone fragments. The patient's awake and returned recovery in good condition she tolerated procedure well. She can be discharged home later today. She'll follow-up in the office early next week for stent removal
[2018-08-25 11:18] VITALS: RESP 16
[2018-08-25 11:48] LABS: Glucose,Whole Blood 158 mg/dL (75-99)
--- NOTE | 2018-08-25 12:26 | FL ---
EXAMINATION TYPE: FL guidance operating room DATE OF EXAM: 08/25/2018 HISTORY: Flouroscopy time 40 seconds of fluoroscopy provided. IMPRESSION: 1. Fluoroscopy time.
[2018-08-25 12:57] VITALS: TEMP 98
[2018-08-25 15:16] VITALS: BP 118/68; PULSE 79
--- NOTE | 2018-08-26 08:54 | DS ---
DISCHARGE SUMMARY DATE OF ADMISSION: 08/24/2018 DATE OF DISCHARGE: 08/25/2018 FINAL DIAGNOSES: 1. Acute flank pain possibly from stone in the left ureter. 2. Hyponatremia, likely hypoosmolar. Sodium was 123 at [facility]. 3. Diabetes mellitus, type 2, on oral hypoglycemic. 4. Diabetic peripheral neuropathy. 5. Gastroesophageal reflux disease. 6. Hyperlipidemia. 7. Primary osteoarthritis. 8. Essential hypertension. 9. Lactic acidosis type 2. CONSULTATION: Dr. Coker from Urology. HOSPITAL COURSE: This pleasant lady who had a lithotripsy done at the [facility]. Came home then started having increasing abdominal pain. Initially presented to [facility] then transferred down here. Sodium was 123, was having nausea, vomiting. Earlier today, a double-J stent catheter was placed left side. Patient's symptoms greatly improved. Patient was feeling much better. On examination, temperature 98, pulse 91, respiration 16, blood pressure 115/69. LUNGS: Clear. CARDIOVASCULAR: First and second sounds normal. INVESTIGATIONS: Hemoglobin 12.8. BUN 13, creatinine 0.97. DISCHARGE MEDICATIONS: 1. Coreg 25 mg p.o. b.i.d. 2. Lasix 20 mg b.i.d. 3. Synthroid 100 mcg p.o. daily. 4. Glucotrol 2.5 before supper and 5 mg in the morning. 5. Glucophage 1000 mg at night, 500 mg in the morning. 6. Zyrtec 10 mg daily. 7. Prilosec 20 mg daily. 8. Flomax 0.4 mg daily. Follow up with Dr. Kayla Ramirez in 2 days. Follow up with Dr. Coker on 08/30/2018. MMODL / IJN: [id number] /
== END 2018-08-25 15:30 | disposition home or self-care (01) | DRG 660 ==
LOC: EC 04:22 → 3SCARD 05:51 → 4SSUR 12:07 → 3NMEDONC 14:02
PROVIDERS: ADMIT Hospitalist; ATTEND Hospitalist
DX: N20.2 Calculus of kidney with calculus of ureter (principal); E87.1 Hypo-osmolality and hyponatremia; E87.2 Acidosis; E11.42 Type 2 diabetes mellitus with diabetic polyneuropathy; E83.42 Hypomagnesemia; K21.9 Gastro-esophageal reflux disease without esophagitis; E03.9 Hypothyroidism, unspecified; E78.5 Hyperlipidemia, unspecified; M19.91 Primary osteoarthritis, unspecified site; I10 Essential (primary) hypertension; H93.19 Tinnitus, unspecified ear; Z79.84 Long term (current) use of oral hypoglycemic drugs; Z79.890 Hormone replacement therapy; Z79.899 Other long term (current) drug therapy; Z85.43 Personal history of malignant neoplasm of ovary; Z98.891 History of uterine scar from previous surgery; Z90.710 Acquired absence of both cervix and uterus; Z87.891 Personal history of nicotine dependence; Z86.59 Personal history of other mental and behavioral disorders; Z87.442 Personal history of urinary calculi; Z88.1 Allergy status to other antibiotic agents; Z88.8 Allergy status to other drugs, medicaments and biological substances; Z91.048 Other nonmedicinal substance allergy status; Z84.1 Family history of disorders of kidney and ureter; Z80.1 Family history of malignant neoplasm of trachea, bronchus and lung; Z83.3 Family history of diabetes mellitus
CPT/HCPCS: 74018; 80048; 81001; 82365; 82570; 83605; 83930; 83935; 84133; 84300; 85025; 96374; 96375; 96376; 99285

== ENCOUNTER → 2018-08-30 | Outpatient (CLI) | payer MEDICARE, OTHER ==
--- NOTE | 2018-08-30 08:14 | XR ---
EXAMINATION TYPE: XR abdomen 1V DATE OF EXAM: 08/30/2018 COMPARISON: 08/24/2018 HISTORY: Post lithotripsy TECHNIQUE: One view abdominal series FINDINGS: Left-sided ureteral stent is seen. Postsurgical change involving the pelvis. No suspicious calcificat ions along the course stent. No definite calcification seen overlying the left kidney. There remains a large right-sided renal calculus measuring 1.1 cm with 2 mm satellite calcification l ower pole. IMPRESSION: 1. Left-sided ureteral stent with no definite residual calcification seen. Note is made there is over lying bowel content which can obscure the region. 2. Right-sided nephrolithiasis as measured above.
== END | disposition home or self-care (01) ==
LOC: RADXRMAIN 07:53
PROVIDERS: ATTEND Urology
DX: N20.0 Calculus of kidney (principal)
CPT/HCPCS: 74018

== ENCOUNTER → 2018-10-11 | Outpatient (CLI) | payer MEDICARE, OTHER ==
--- NOTE | 2018-10-11 12:10 | XR ---
KUB HISTORY: Stone, N 20.0 Frontal KUB submitted on 2 images Correlation to prior KUB 08/24/2018 Oh calcification at the lower pole the right kidney persists and measures approximately 16 mm in ceph alad to caudal dimension. Surgical clips present in the left hemipelvis. Additional suture present in the pelvis, there is associated vascular calcifications present within the pelvis as on prior. Lung bases are clear. No pneumoperitoneum or bowel obstruction. Retained fecal debris throughout the colon , correlate for fecal stasis. The increased attenuation at the level of the distal ureter on the left is no longer seen. IMPRESSION: Right-sided nephrolithiasis.
== END | disposition home or self-care (01) ==
LOC: RADXRMAIN 07:28
PROVIDERS: ATTEND Urology
DX: N20.0 Calculus of kidney (principal)
CPT/HCPCS: 74018

== ENCOUNTER → 2018-10-18 | Outpatient (CLI) | payer MEDICARE, OTHER ==
--- NOTE | 2018-10-18 09:10 | US ---
EXAMINATION TYPE: US kidneys/renal and bladder DATE OF EXAM: 10/18/2018 COMPARISON: KUB CLINICAL HISTORY: N20.0 Calculus of Kidneys. Pt states h/o renal stones x many years/ pt had lithotri psy with stent placement and removal left kidney 6 weeks ago EXAM MEASUREMENTS: Right Kidney: 12.5 x 5.8 x 6.9 cm Left Kidney: 11.7 x 6.2 x 5.1 cm Right Kidney: No evidence of hydro, 1.1 cm renal calculus in the lower pole Left Kidney: Mildly under nephrosis, 1.1 renal calculus in the lower pole Bladder: wnl Bilateral Jets seen: Yes No masses are identified. The urinary bladder is anechoic. Bilateral ureteral jets are seen. IMPRESSION: Mild left hydronephrosis status post lithotripsy. Bilateral nonobstructing renal calculi.
== END | disposition home or self-care (01) ==
LOC: RADUSWWP 08:13
PROVIDERS: ATTEND Urology
DX: N13.30 Unspecified hydronephrosis (principal); N20.0 Calculus of kidney; Z98.890 Other specified postprocedural states
CPT/HCPCS: 76770

== ENCOUNTER → 2018-12-21 | Outpatient (CLI) | payer MEDICARE, OTHER ==
--- NOTE | 2018-12-21 11:40 | US ---
EXAMINATION TYPE: US kidneys/renal and bladder DATE OF EXAM: 12/21/2018 COMPARISON: US dated 10/18/2018 CLINICAL HISTORY: N13.30 Hydronephrosis. EXAM MEASUREMENTS: Right Kidney: 12.4 x 5.9 x 6.4 cm Left Kidney: 11.4 x 6.0 x 5.8 cm Right Kidney: stone lower pole measures 0.9 x 0.5 x 1.1 cm. Minimal right pelvocaliectasis. Left Kidney: stone lower pole measures 1.1 x 0.8 x 0.9 cm, tiny cortical cyst measures 1.1 x 0.8 x 0. 8 cm., Demonstrating increased or transmission Bladder: wnl Bilateral Jets seen: Yes There is no evidence for hydronephrosis at this point in time. No suspicious masses are identified. The urinary bladder is anechoic. Bilateral ureteral jets are seen. IMPRESSION: Bilateral nonobstructing renal calculi. The previously seen left hydronephrosis has resol violette. Very minimal right pelvocaliectasis without discrete hydronephrosis.
== END ==
LOC: RADUSWWP 10:18
PROVIDERS: ATTEND Urology
DX: N20.0 Calculus of kidney (principal); Z88.1 Allergy status to other antibiotic agents; Z88.8 Allergy status to other drugs, medicaments and biological substances
CPT/HCPCS: 76770